=== PATIENT | female | born 2000 | race Hispanic/Latino ===

== ENCOUNTER 2024-06-16 07:11 | Inpatient (IN) | payer OTHER, BC ==
[2024-06-16] MEDS ORDERED: hydrALAZINE 20 MG/ML VIAL ONE (08:01)
[2024-06-16] MEDS: hydrALAZINE 20 MG/ML VIAL SLOW IVP PRN (08:20)
[2024-06-16] MEDS ORDERED: Lorazepam 2 MG/ML VIAL SLOW IVP PRN (08:26)
[2024-06-16] MEDS ORDERED: Labetalol HCl 100 MG/20 ML VIAL SLOW IVP PRN ×2 (08:26)
[2024-06-16] MEDS ORDERED: Calcium Gluc 4.6 MEQ/10 ML (100 MG/ML) SLOW IVP PRN (08:26)
[2024-06-16 08:34] VITALS: BMI 31.4
[2024-06-16 09:08] LABS: #Basophils 0.03 10x3/uL (0.0-0.2); #Eosinphils 0.07 10x3/uL (0.0-0.5); #Monocytes 0.73 10x3/uL (0.0-1.1); %Basophils 0.3 % (0.0-2.0); %Eosinophils 0.6 % (0.0-6.0); %Lymphocytes 26.3 % (18.0-47.0); %Monocytes 6.6 % (0.0-10.0); %Neutrophils 65.7 % (40.0-75.0); Hematocrit 37.7 % (34.9-44.5); Hemoglobin 12.8 g/dL (12.0-15.5); Mean Corpuscular Hemoglobin 30.5 pg (27.0-33.0); Mean Corpuscular Volume 89.8 fL (81.6-98.3); Platelet Count 215 10x3/uL (150-450); RBC Distribution Width 12.6 % (11.5-14.5); White Blood Cell (WBC) Count 11.1 10x3/uL (3.5-10.5)
[2024-06-16] MEDS ORDERED: Promethazine HCl 25 MG/ML VIAL IM PRN (09:29)
[2024-06-16] MEDS ORDERED: Acetaminophen 500 MG TAB PO PRN (09:29)
[2024-06-16] MEDS ORDERED: Lidocaine 1% (PF) 30 ML VIAL SC PRN (09:29)
[2024-06-16] MEDS ORDERED: Ondansetron PF 4 MG/2 ML Vial IVP PRN (09:29)
[2024-06-16] MEDS ORDERED: Misoprostol 200 MCG TAB PR PRN (09:29)
[2024-06-16] MEDS ORDERED: Carboprost 250 MCG/ML AMP IM PRN (09:29)
[2024-06-16] MEDS ORDERED: Tranexamic Acid 1,000 MG/10 ML VIAL IVP PRN (09:29)
[2024-06-16] MEDS ORDERED: Diphenoxylate HCl/Atropine Tablet PO PRN (09:29)
[2024-06-16] MEDS ORDERED: Methylergonovine 0.2 MG/ML VIAL IM PRN (09:29)
[2024-06-16] MEDS ORDERED: Oxytocin 30 units/NS 500 ML 500 ML IV SCH (09:30)
[2024-06-16] MEDS ORDERED: Lactated Ringer's 1,000 ML IV SCH (09:30)
[2024-06-16] MEDS: Oxytocin 30 units/NS 500 ML 500 ML IV SCH (10:18)
[2024-06-16 10:27] LABS: ALT (SGPT) 8 U/L (8-55); AST (SGOT) 11 U/L (5-34); Albumin 2.8 g/dL (3.5-5.0); Alkaline Phosphatase 183 U/L (40-110); Anion Gap 14 mmol/L (10-20); BUN (Urea Nitrogen) 11 mg/dL (7.0-18.7); Bilirubin, Total 0.3 mg/dL (0.2-1.2); Calc. Creatinine Clearance 171 mL/min (70-130); Calcium 8.5 mg/dL (7.8-10.44); Carbon Dioxide 17 mmol/L (22-29); Chloride 111 mmol/L (98-107); Estimated GFR 125; Globulin 3.4 g/dL (2.4-3.5); Glucose 68 mg/dL (70-105); Potassium 4.4 mmol/L (3.5-5.1); Protein, Total 6.2 g/dL (6.0-8.3); Sodium 138 mmol/L (136-145)
[2024-06-16] MEDS ORDERED: Milk Of Magnesia 30 ML UDCUP PO PRN (10:27)
[2024-06-16] MEDS ORDERED: Boostrix 0.5 ML (Tdap) VIAL (>/=7 yrs of age) IM ONE (10:27)
[2024-06-16] MEDS ORDERED: Bisacodyl 10 MG SUPP PR PRN (10:27)
[2024-06-16] MEDS ORDERED: fentaNYL 50 mcg/mL 1 mL Vial SLOW IVP SCH (10:30)
[2024-06-16] MEDS: fentaNYL 50 mcg/mL 1 mL Vial ONE (10:32)
[2024-06-16 10:47] LABS: HBsAg Index 0.21 S/CO (0-0.99); Hep B Surf Ag - L&D Non-Reactive S/CO (NonReactive)
[2024-06-16 10:48] LABS: Syphilis Antibody Nonreactive (Nonreactive); Syphilis Antibody Index 0.02 S/CO (<1.00 Non-Reactive)
[2024-06-16] MEDS: Ibuprofen 800 MG TAB PO PRN ×2 (11:56→19:26)
[2024-06-16 12:40] LABS: Creatinine, Urine 114.52 mg/dL (47-110)
[2024-06-16] MEDS: Ferrous Sulfate 325 MG TAB PO SCH (16:14)
[2024-06-16] MEDS: Docusate 100 MG CAP PO SCH (19:26)
[2024-06-17 07:26] VITALS: BP 125/74; TEMP 97.8
[2024-06-17] MEDS: Sertraline 25 MG TAB PO SCH ×2 (07:54→08:12)
[2024-06-17] MEDS: Prenatal Vitamin 1 TAB PO SCH (07:54)
== END 2024-06-17 14:50 | disposition home or self-care (01) | DRG 807 ==
LOC: CSHLD/OP 07:11 → CSHLD 09:33 → CSHPP 13:16
PROVIDERS: ADMIT Obstetrics & Gynecology; ATTEND Obstetrics & Gynecology
PROC: 10E0XZZ Delivery of Products of Conception, External Approach (ICD-10-PCS; principal; 2024-06-16)
PROC: 10907ZC Drainage of Amniotic Fluid, Therapeutic from Products of Conception, Via Natural or Artificial Opening (ICD-10-PCS; 2024-06-16)
DX: O13.4 Gestational [pregnancy-induced] hypertension without significant proteinuria, complicating childbirth (principal); Z37.0 Single live birth; Z3A.39 39 weeks gestation of pregnancy; F32.9 Major depressive disorder, single episode, unspecified; O99.343 Other mental disorders complicating pregnancy, third trimester; O99.344 Other mental disorders complicating childbirth; F41.8 Other specified anxiety disorders; O77.0 Labor and delivery complicated by meconium in amniotic fluid
CPT/HCPCS: 51701; 80053; 82570; 84156; 85025; 86780; 86850; 86900; 86901; 87340; 99285; J0360; J2590; J3010